=== PATIENT | male | born 1950 | race Caucasian/White ===

== ENCOUNTER 2019-08-26 13:50 | Outpatient (CLI) | payer MEDICARE ==
[~2019-08-26 13:50] MED LIST: AMLO10TA8 PO; CLON1TAB11 PO; DIVA250T4 PO; FLUO20CA8 PO; QUET25TA5 PO; SIMV20TA3 PO
== END 2019-08-26 23:59 | disposition home or self-care (01) ==
LOC: CFH 13:50
PROVIDERS: ATTEND Family Medicine
DX: M79.89 Other specified soft tissue disorders (principal)